=== PATIENT | female | born 1935 | race Hispanic/Latino ===

== ENCOUNTER 2021-10-26 15:57 | Emergency (ER) | payer OTHER, MEDICARE ==
[2021-10-26 16:06] VITALS: BP 145/79
[2021-10-26] MEDS ORDERED: ACETAMINOPHEN 500 MG TABLET PO ONE (16:30)
== END 2021-10-26 16:35 | disposition home or self-care (01) ==
LOC: EDH 15:57
DX: Z04.3 Encounter for examination and observation following other accident (principal); E11.9 Type 2 diabetes mellitus without complications; E78.00 Pure hypercholesterolemia, unspecified; I10 Essential (primary) hypertension; Z88.0 Allergy status to penicillin; W18.39XA Other fall on same level, initial encounter; Y93.89 Activity, other specified; Y92.89 Other specified places as the place of occurrence of the external cause; Y99.8 Other external cause status
CPT/HCPCS: 71045